=== PATIENT | male | born 1995 | race Two or more races ===

== ENCOUNTER 2024-08-31 00:18 | Emergency (ER) | payer MEDICAID ==
[~2024-08-31] VITALS: Ht 172.7 cm; Wt 90.7 kg
[2024-08-31 00:54] LABS: *BILIRUBIN,URIN NEGATIVE (NEGATIVE); *BLOOD, URINE 1+ (NEGATIVE); *CLARITY,URINE CLEAR (CLEAR); *COLOR,URINE YELLOW (YELLOW); *KETONES,URINE NEGATIVE (NEGATIVE); *PROTEIN,URINE NEGATIVE (NEGATIVE); *UROBILINOGEN,URINE 0.2 E.U./dl (NORMAL); LEUKOCYTE ESTERASE ,URINE NEGATIVE (NEGATIVE); NITRITE, URINE NEGATIVE (NEGATIVE); UGLUCOSE NEGATIVE (NEGATIVE)
[2024-08-31 01:05] LABS: SQUAMOUS EPITHELIAL CELL,UR FEW /HPF (NONE SEEN)
[2024-08-31 02:19] VITALS: BP 154/91; TEMP 98; O2SAT 98
[2024-09-02 20:07] LABS: *CHLAMYDIA NAA Negative (Negative); *GC NAA Negative (Negative); *TRIC.VAG. NAA Negative (Negative)
== END 2024-08-31 02:20 | disposition home or self-care (01) ==
LOC: ER 00:28
DX: R30.0 Dysuria (principal); R03.0 Elevated blood-pressure reading, without diagnosis of hypertension; R35.0 Frequency of micturition; R82.90 Unspecified abnormal findings in urine; R31.29 Other microscopic hematuria; F17.290 Nicotine dependence, other tobacco product, uncomplicated; Z87.442 Personal history of urinary calculi; Z88.7 Allergy status to serum and vaccine; Z88.8 Allergy status to other drugs, medicaments and biological substances
CPT/HCPCS: 87491; A4606; A4663